=== PATIENT | female | born 1990 | race Two or more races ===

== ENCOUNTER 2023-05-16 13:48 | Emergency (ER) | payer SELFPAY ==
[~2023-05-16] VITALS: Ht 175.3 cm; Wt 117.9 kg
[2023-05-16 14:28] VITALS: TEMP 98.1
[2023-05-16 17:24] VITALS: BP 122/84; O2SAT 99
== END 2023-05-16 17:25 | disposition home or self-care (01) ==
LOC: ER 13:56
DX: R51.9 Headache, unspecified (principal); V89.2XXA Person injured in unspecified motor-vehicle accident, traffic, initial encounter; Y93.89 Activity, other specified; Y92.89 Other specified places as the place of occurrence of the external cause; Y99.8 Other external cause status
CPT/HCPCS: 70450-TC